=== PATIENT | female | born 1940 | race Caucasian/White ===

== ENCOUNTER 2020-06-08 18:01 | Day surgery (SDCO) | payer MEDICARE, OTHER ==
[2020-06-08 19:49] LABS: BASOPHIL 0.6 % (0-2); EOSINOPHIL 4.6 % (0-7); HCT 39.7 % (37.0-47.0); LYMPHOCYTE 23.1 % (15-48); MCH 30.5 pg (25.0-31.0); MCHC 32.7 g/dL (32.0-36.0); MCV 93.2 fL (78.0-100.0); MONOCYTE 7.3 % (0-12); MPV 10.2 fL (6.0-9.5); NRBC 0; PLT 278 K/uL (150-400); RBC 4.26 M/uL (4.20-5.40); RDW 12.7 % (11.5-14.0); WBC 7.2 K/uL (4.0-10.5)
[2020-06-08 20:01] LABS: ALBUMIN 3.4 g/dL (3.4-5.0); BILIRUBIN - DIRECT 0.1 mg/dL (0.00-0.20); BILIRUBIN - TOTAL 0.3 mg/dL (0.2-1.0); BUN/CREAT RATIO (CALC) 22.2 RATIO; CREATININE 1.62 mg/dL (0.51-0.95); GLOBULIN (CALCULATION) 3.5 g/dL; POTASSIUM 4.2 mmol/L (3.5-5.1); TOTAL PROTEIN 6.9 g/dL (6.4-8.2)
[2020-06-08 23:40] LABS: BILIRUBIN NEGATIVE (NEGATIVE); BLOOD NEGATIVE Ery/uL (NEGATIVE); CLARITY CLEAR (CLEAR); COLOR YELLOW (YELLOW); GLUCOSE (U) NORMAL (NORMAL); LEUKOCYTES TRACE Leu/uL (NEGATIVE); NITRITE NEGATIVE (NEGATIVE); PROTEIN NEGATIVE (NEGATIVE); UROBILINOGEN 0.2 mg/dL (0.2-1.0); pH 5.5 (5.0-9.0)
[2020-06-08 23:47] LABS: BACTERIA TRACE; SQUAMOUS EPITHELIAL CELLS RARE; URINARY RBC RARE
[2020-06-09] MEDS ORDERED: AMLODIPINE BESY10 MG PO (01:21)
[2020-06-09] MEDS ORDERED: LOVASTATIN40 MG PO (01:21)
[2020-06-09] MEDS ORDERED: BENAZEPRIL HCL20 MG PO (01:21)
[2020-06-09] MEDS ORDERED: TYLENOL ARTHRI650 MG PO (01:22)
[2020-06-09] MEDS ORDERED: LOVAZA1 GM PO (01:22)
[2020-06-09] MEDS ORDERED: TRAMADOL HCL50 MG PO (01:22)
[2020-06-09] MEDS ORDERED: VITAMIN D3-CAL1 EACH PO (01:23)
[2020-06-09 01:39] LABS: MAGNESIUM 1.9 mg/dL (1.8-2.4); PHOSPHORUS 3.8 mg/dL (2.6-4.7)
[2020-06-09 08:07] LABS: EOSINOPHIL 7.1 % (0-7); HCT 40.3 % (37.0-47.0); HGB 13.5 g/dl (12.5-16.0); LYMPHOCYTE 27.4 % (15-48); MCH 31.2 pg (25.0-31.0); MCHC 33.5 g/dL (32.0-36.0); MCV 93.1 fL (78.0-100.0); MONOCYTE 6.9 % (0-12); MPV 10.3 fL (6.0-9.5); NEUTROPHIL 57.1 % (41-80); NRBC 0; PLT 262 K/uL (150-400); RBC 4.33 M/uL (4.20-5.40); RDW 12.6 % (11.5-14.0); WBC 6.1 K/uL (4.0-10.5)
[2020-06-09 08:48] LABS: ALBUMIN 3.1 g/dL (3.4-5.0); BILIRUBIN - TOTAL 0.3 mg/dL (0.2-1.0); BUN/CREAT RATIO (CALC) 23.9 RATIO; CREATININE 1.13 mg/dL (0.51-0.95); GLOBULIN (CALCULATION) 3.3 g/dL; POTASSIUM 4.1 mmol/L (3.5-5.1); TOTAL PROTEIN 6.4 g/dL (6.4-8.2)
[2020-06-09] MEDS ORDERED: KEFLEX250 MG PO (12:41)
--- NOTE | 2020-06-09 13:17 | NUR ---
MET WITH PT AND DAUGHTER REGARDING ANY DC/ NEEDS. PT. STATED THAT SHE DOES NOT HAVE ANY D/C NEEDS. SHE DOES NOT REQUIRE ANY DME. SHE DOES NOT REQUIRE ANY ASSISTANCE WITH MEDICATION. DAUGHTER WAS IN AGREEMENT WITH HER MOTHER. PER DR. ESTRADA PT. WILL D/C TODAY WITH NO NEEDS.
== END 2020-06-09 13:44 | disposition home or self-care (01) ==
LOC: FER 18:01 → FMS 06-09 00:17
PROVIDERS: Nurse Practitioner; Student in an Organized Health Care Education/Training Program; ADMIT Allergy & Immunology Allergy
DX: N17.9 Acute kidney failure, unspecified (principal); N30.00 Acute cystitis without hematuria; I10 Essential (primary) hypertension; E78.5 Hyperlipidemia, unspecified; R42 Dizziness and giddiness; Z90.49 Acquired absence of other specified parts of digestive tract; Z88.2 Allergy status to sulfonamides; Z90.710 Acquired absence of both cervix and uterus; Z98.890 Other specified postprocedural states; Z20.822 Contact with and (suspected) exposure to COVID-19; Z82.49 Family history of ischemic heart disease and other diseases of the circulatory system; Z87.39 Personal history of other diseases of the musculoskeletal system and connective tissue; Z79.899 Other long term (current) drug therapy; Z96.652 Presence of left artificial knee joint
CPT/HCPCS: 36415; 71045; 80048; 80053; 80076; 81001; 83690; 83735; 84100; 84484; 85025; 93005; G0378; J0696; J1650; J7030; U0002